=== PATIENT | male | born 1985 | race Caucasian/White ===

== ENCOUNTER 2017-03-20 19:37 | Emergency (ER) | payer SELFPAY ==
[2017-03-20 21:38] VITALS: BP 115/60
== END 2017-03-20 21:38 | disposition home or self-care (01) ==
LOC: ED 19:37
DX: S61.212A Laceration without foreign body of right middle finger without damage to nail, initial encounter (principal); W22.8XXA Striking against or struck by other objects, initial encounter; Y93.89 Activity, other specified; Y92.89 Other specified places as the place of occurrence of the external cause; Y99.8 Other external cause status
CPT/HCPCS: 90715; J2001